=== PATIENT | female | born 1990 | race Hispanic/Latino ===

== ENCOUNTER 2021-09-10 08:06 | Observation (INO) | payer BC ==
[~2021-09-10] VITALS: Ht 160 cm; Wt 83.9 kg
[2021-09-10] VITALS (9 sets, daily range): BP systolic 123–179; BP diastolic 72–108
[2021-09-10 09:43] LABS: HEMATOCRIT 25.4 % (36-48); MEAN CORPUSCULAR HGB CONC 29.5 g/dL (32.0-36.0); MEAN CORPUSCULAR VOLUME 84.7 fL (79-99); PLATELET COUNT (AUTO) 375 K/uL (130-400); RED CELL DISTRIBUTION WIDTH 14.5 % (11.0-15.5); WHITE BLOOD COUNT (AUTO) 4.8 K/uL (4.8-10.8)
[2021-09-10 09:54] LABS: INR 0.93 (0.85-1.15); PROTHROMBIN TIME 10.1 SEC (9.6-11.6)
[2021-09-10 09:55] LABS: PARTIAL THROMBOPLASTIN TIME 31.9 SEC (26.3-35.5)
[2021-09-10 09:57] LABS: CREATININE 0.7 mg/dL (0.5-1.5); POTASSIUM 3.6 mmol/L (3.5-5.1)
[2021-09-10 10:03] LABS: EOSINOPHILS % (MANUAL) 8 % (1-6); LYMPHOCYTES % (MANUAL) 27 % (22-44); MAN.DIFF COMMENT-IMPRESSION MANUAL DIFFERENTIAL; MONOCYTES % (MANUAL) 4 % (2-9); SEGMENTED NEUTROPHILS % 61 % (40-70)
[2021-09-10 10:04] LABS: PLATELET MORPHOLOGY COMMENT ADEQUATE
[2021-09-10] MEDS ORDERED: HYDR-3420 PO (11:03)
[2021-09-10] MEDS ORDERED: FOLI1TAB61 PO (11:04)
[2021-09-10] MEDS ORDERED: LEVO25CA4 PO (11:05)
[2021-09-10] MEDS ORDERED: TORS20TA4 PO (11:06)
[2021-09-10 14:19] LABS: HEMATOCRIT 24.1 % (36-48)
[2021-09-10] MEDS ORDERED: ACETAMINOPHEN 500 MG TABLET PO PRN ×2 (15:30)
[2021-09-11 04:09] VITALS: BP 143/97
[2021-09-11 04:37] LABS: MEAN CORPUSCULAR VOLUME 83.3 fL (79-99); RED BLOOD CELL COUNT(AUTO) 2.88 MIL/uL (4.00-5.50); RED CELL DISTRIBUTION WIDTH 14.5 % (11.0-15.5); WHITE BLOOD COUNT (AUTO) 5.7 K/uL (4.8-10.8)
[2021-09-11 04:46] LABS: CREATININE 0.6 mg/dL (0.5-1.5); POTASSIUM 3.4 mmol/L (3.5-5.1)
[2021-09-11 08:00] VITALS: BP 133/89
[2021-09-11 11:57] VITALS: BP 152/85
[2021-09-11] MEDS ORDERED: IRON SUCROSE COMPLEX 400 MG in 0.9%NACL 50ML 50 ML IV SCH (15:30)
[2021-09-11] MEDS ORDERED: COMPOUND IV MISC 1 EACH IVSOLN MISC PRN (15:30)
[2021-09-11] MEDS ORDERED: IRON SUCROSE COMPLEX 300 MG in 0.9%NACL 50ML 50 ML IV SCH (15:30)
[2021-09-11 16:00] VITALS: BP 164/105
[2021-09-11 20:00] VITALS: BP 140/97
[2021-09-12] VITALS: BP 160/92
[2021-09-12 04:00] VITALS: BP 140/80
[2021-09-12 05:49] LABS: HEMATOCRIT 23.9 % (36-48); MEAN CORPUSCULAR HEMOGLOBIN 25.3 pg (27.0-33.0); MEAN CORPUSCULAR HGB CONC 30.5 g/dL (32.0-36.0); RED BLOOD CELL COUNT(AUTO) 2.88 MIL/uL (4.00-5.50); RED CELL DISTRIBUTION WIDTH 14.4 % (11.0-15.5)
[2021-09-12 06:08] LABS: CREATININE 0.8 mg/dL (0.5-1.5); POTASSIUM 3.5 mmol/L (3.5-5.1)
[2021-09-12 08:00] VITALS: BP 140/76
[2021-09-12] MEDS ORDERED: IRON SUCROSE COMPLEX 300 MG in 0.9%NACL 50ML 50 ML IV SCH (09:00)
[2021-09-12 12:00] VITALS: BP 163/102
[2021-09-12] MEDS ORDERED: FERR325T29 PO (13:55)
== END 2021-09-12 16:45 | disposition home or self-care (01) ==
LOC: RAH 08:06 → 3DH 08:16 → EDSTATUS 10:00
PROVIDERS: ADMIT Internal Medicine Nephrology; ATTEND Internal Medicine Nephrology
DX: R80.9 Proteinuria, unspecified (principal); I12.9 Hypertensive chronic kidney disease with stage 1 through stage 4 chronic kidney disease, or unspecified chronic kidney disease; N18.9 Chronic kidney disease, unspecified; D50.9 Iron deficiency anemia, unspecified; E03.9 Hypothyroidism, unspecified; N83.209 Unspecified ovarian cyst, unspecified side; Z79.899 Other long term (current) drug therapy; Z98.890 Other specified postprocedural states
CPT/HCPCS: 80048 ×3; 85025; 85610; 85730; 85014; 85018; 86850; 86900; 86922; 86901; 86156; 86870; 36415 ×3; 50200; 76942; 96365; 83540; 83550; 82728; 85027 ×2; 96366; G0378 ×56; G0379; J1756 ×2

== ENCOUNTER 2022-09-05 07:03 | Day surgery (SDC) | payer BC ==
[2022-09-02 10:16] VITALS: BP 194/106
[2022-09-02 10:16] LABS: BASOPHILS % (AUTO) 0.4 % (0.0-5.0); EOSINOPHILS % (AUTO) 0.4 % (0.0-8.0); HEMATOCRIT 32.3 % (36-48); LYMPHOCYTES % (AUTO) 11.3 % (21.0-51.0); MEAN CORPUSCULAR HEMOGLOBIN 30.2 pg (27.0-33.0); MEAN CORPUSCULAR HGB CONC 32.8 g/dL (32.0-36.0); MONOCYTES % (AUTO) 8.9 % (3.0-13.0); NEUTROPHILS % (AUTO) 77.4 % (40.0-77.0); PLATELET COUNT (AUTO) 297 K/uL (130-400); RED BLOOD CELL COUNT(AUTO) 3.51 MIL/uL (4.00-5.50); RED CELL DISTRIBUTION WIDTH 14.6 % (11.0-15.5); WHITE BLOOD COUNT (AUTO) 11.4 K/uL (4.8-10.8)
[2022-09-02 10:29] LABS: INR 0.94 (0.85-1.15); PROTHROMBIN TIME 10.3 SEC (9.6-11.6)
[2022-09-02 10:30] LABS: ALBUMIN 2.4 g/dL (3.5-5.0); CREATININE 1.7 mg/dL (0.5-1.5); POTASSIUM 3.8 mmol/L (3.5-5.1); TOTAL PROTEIN, SERUM 4.7 g/dL (6.0-8.3)
[2022-09-02 10:31] LABS: PARTIAL THROMBOPLASTIN TIME 30.5 SEC (26.3-35.5)
[~2022-09-05] VITALS: Ht 162.6 cm; Wt 67.9 kg
[2022-09-05] VITALS (19 sets, daily range): BP systolic 73–154; BP diastolic 38–93
[~2022-09-05 07:03] MED LIST: BUME2TAB5 PO; CARV25TA PO; DOXA2TAB2 PO; ERGO500093 PO; HYDR100T27 PO; IRON1CAP35 PO; LEVE500T19 PO; LEVO50CA4 PO; LOSA100T59 PO; PANT40TA54 PO; PRED20TA3 PO
[2022-09-05] MEDS ORDERED: 0.9%NACL 1000ML 1,000 ML IV ONE (08:40)
[2022-09-05] MEDS ORDERED: CEFAZOLIN SODIUM 2 GM VIAL ONE (08:40)
[2022-09-05] MEDS ORDERED: FAMOTIDINE 20MG VIAL IV ONE (13:00)
[2022-09-05] MEDS ORDERED: HYDROMORPHONE 1 MG INJ ONE (13:00)
[2022-09-05] MEDS ORDERED: MIDAZOLAM HCL 1 MG/ML 2ML VIAL ONE (13:05)
[2022-09-05] MEDS ORDERED: PROPOFOL 10 MG/ML 20ML VIAL IV ONE (13:05)
[2022-09-05] MEDS ORDERED: ROCURONIUM 10MG/1ML SYR 10 MG/ML ML ONE ×2 (13:05→14:37)
[2022-09-05] MEDS ORDERED: FENTANYL CITRATE PF 50 MCG/1 ML 5ML AMP IV ONE (13:06)
[2022-09-05] MEDS ORDERED: CEFAZOLIN SODIUM 2 GM VIAL IVPB ONE (13:31)
[2022-09-05] MEDS ORDERED: BUPIVACAINE/PF 0.5% 50ML 5 MG/ML VIAL IJ ONE (13:32)
[2022-09-05] MEDS ORDERED: BUPIVACAINE/PF 0.5% 50ML 5 MG/ML VIAL ONE (13:36)
[2022-09-05] MEDS ORDERED: GLYCOPYRROLATE 1 MG/5 ML SYRINGE ONE (13:43)
[2022-09-05] MEDS ORDERED: ROPIVACAINE 0.5% 5MG/ML 30ML IJ ONE (16:01)
[2022-09-05] MEDS ORDERED: NEOSTIGMINE 5MG/5ML SYR IV ONE (16:05)
[2022-09-05] MEDS ORDERED: EPHEDRINE SULFATE 50 MG/ML AMPULE ONE (16:26)
== END 2022-09-05 18:14 | disposition home or self-care (01) ==
LOC: DAH 07:03
PROVIDERS: ATTEND Student in an Organized Health Care Education/Training Program
DX: K43.0 Incisional hernia with obstruction, without gangrene (principal); Z20.822 Contact with and (suspected) exposure to COVID-19; K66.0 Peritoneal adhesions (postprocedural) (postinfection); I10 Essential (primary) hypertension; K21.9 Gastro-esophageal reflux disease without esophagitis; E03.9 Hypothyroidism, unspecified; Z79.01 Long term (current) use of anticoagulants; Z79.899 Other long term (current) drug therapy; Z82.49 Family history of ischemic heart disease and other diseases of the circulatory system; Z83.3 Family history of diabetes mellitus; Z98.890 Other specified postprocedural states
CPT/HCPCS: 49596; 64486; S2900; 36415; 80053; 84703; 85025; 85610; 85730; 87426; J1170; J2250; J2704; J2710; J2795; J3010; J3490; J7030

== ENCOUNTER 2022-11-01 14:47 | Emergency (ER) | payer BC ==
[~2022-11-01] VITALS: Ht 160 cm; Wt 64.0 kg
[2022-11-01 16:29] LABS: BASOPHILS % (AUTO) 0.3 % (0.0-5.0); EOSINOPHILS % (AUTO) 0.5 % (0.0-8.0); LYMPHOCYTES % (AUTO) 4.8 % (21.0-51.0); MEAN CORPUSCULAR HEMOGLOBIN 31.2 pg (27.0-33.0); MEAN CORPUSCULAR HGB CONC 31.6 g/dL (32.0-36.0); MEAN CORPUSCULAR VOLUME 98.7 fL (79-99); MONOCYTES % (AUTO) 2.4 % (3.0-13.0); NEUTROPHILS % (AUTO) 91.4 % (40.0-77.0); PLATELET COUNT (AUTO) 335 K/uL (130-400); RED BLOOD CELL COUNT(AUTO) 1.54 MIL/uL (4.00-5.50); RED CELL DISTRIBUTION WIDTH 14.6 % (11.0-15.5); WHITE BLOOD COUNT (AUTO) 11.3 K/uL (4.8-10.8)
[2022-11-01 16:45] LABS: CREATININE 2.1 mg/dL (0.5-1.5)
[2022-11-01 16:50] LABS: HEMATOCRIT 15.2 % (36-48)
[2022-11-01 16:54] LABS: ALBUMIN 2.8 g/dL (3.5-5.0); TOTAL PROTEIN, SERUM 5.5 g/dL (6.0-8.3)
[2022-11-01 17:03] LABS: APPEARANCE,URINE CLEAR (CLEAR); BILIRUBIN,URINE NEGATIVE (NEGATIVE); COLOR,URINE COLORLESS (YELLOW); GLUCOSE, URINE (UA) NEGATIVE (NEGATIVE); KETONES,URINE NEGATIVE (NEGATIVE); LEUKOCYTE ESTERASE ,URINE NEGATIVE Leu/uL (NEGATIVE); NITRATE,URINE NEGATIVE (NEGATIVE); OCCULT BLOOD,URINE LARGE (NEGATIVE); PROTEIN,URINE 30 mg/dL (NEGATIVE); UROBILINOGEN,URINE 0.2 mg/dL (0.2-1.0)
[2022-11-01 17:08] LABS: BACTERIA,URINE RARE /HPF (None Seen); MUCUS,URINE RARE LPF (None Seen); RBC,URINE TNTC /HPF (0-1); SQUAMOUS EPITHELIAL CELL,UR RARE /HPF (0-2)
[2022-11-02 00:24] VITALS: BP 122/53; PULSE 70; RESP 17; O2SAT 98
== END 2022-11-02 00:34 | disposition home or self-care (01) ==
LOC: EDH 14:47
DX: I12.9 Hypertensive chronic kidney disease with stage 1 through stage 4 chronic kidney disease, or unspecified chronic kidney disease (principal); D64.9 Anemia, unspecified; D63.1 Anemia in chronic kidney disease; N18.9 Chronic kidney disease, unspecified; Z79.52 Long term (current) use of systemic steroids; Z79.899 Other long term (current) drug therapy
CPT/HCPCS: 99285; 36430; 80053; 85025; 86850; 86900; 86922; 86901; 81001; 36415; 85007; P9016 ×2

== ENCOUNTER 2022-12-10 15:11 | Emergency (ER) | payer BC ==
[~2022-12-10] VITALS: Ht 160 cm; Wt 65.8 kg
[2022-12-10 16:47] LABS: BASOPHILS # (AUTO) 0.02 K/uL (0.00-0.20); BASOPHILS % (AUTO) 0.4 % (0.0-5.0); EOSINOPHILS # (AUTO) 0.07 K/uL (0.00-0.70); EOSINOPHILS % (AUTO) 1.5 % (0.0-8.0); IMMATURE GRANULOCYTE ABSOLUTE 0.01 K/uL (0-1); LYMPHOCYTES # (AUTO) 0.7 K/uL (1.0-4.8); LYMPHOCYTES % (AUTO) 14.9 % (21.0-51.0); MEAN CORPUSCULAR HGB CONC 31.7 g/dL (32.0-36.0); MEAN CORPUSCULAR VOLUME 91.3 fL (79-99); MONOCYTES # (AUTO) 0.3 K/uL (0.1-1.0); MONOCYTES % (AUTO) 6.4 % (3.0-13.0); NEUTROPHILS # (AUTO) 3.5 K/uL (1.8-7.7); NEUTROPHILS % (AUTO) 76.6 % (40.0-77.0); PLATELET COUNT (AUTO) 330 K/uL (130-400); RED BLOOD CELL COUNT(AUTO) 2.07 MIL/uL (4.00-5.50); RED CELL DISTRIBUTION WIDTH 13.9 % (11.0-15.5); WHITE BLOOD COUNT (AUTO) 4.6 K/uL (4.8-10.8)
[2022-12-10 17:01] LABS: INR < 0.93 (0.85-1.15); PROTHROMBIN TIME 10.5 SEC (9.6-11.6)
[2022-12-10 17:02] LABS: CREATININE 1.7 mg/dL (0.5-1.5); PARTIAL THROMBOPLASTIN TIME 33.3 SEC (26.3-35.5); POTASSIUM 3.9 mmol/L (3.5-5.1)
[2022-12-10 17:03] LABS: AMPHET/METH SCREEN,URINE NEGATIVE (NEGATIVE); BARBITURATE SCREEN, URINE NEGATIVE (NEGATIVE); BENZODIAZEPINES SCREEN,URINE NEGATIVE (NEGATIVE); CANNABINOID SCREEN,URINE NEGATIVE (NEGATIVE); COCAINE SCREEN,URINE NEGATIVE (NEGATIVE); OPIATE SCREEN,URINE NEGATIVE (NEGATIVE); PHENCYCLIDINE SCREEN,URINE NEGATIVE (NEGATIVE)
[2022-12-10 17:07] LABS: HEMATOCRIT 18.9 % (36-48)
[2022-12-10 17:17] LABS: HCG,QUALITATIVE URINE NEGATIVE (NEGATIVE)
[2022-12-10] MEDS ORDERED: 0.9% NACL 500ML IV.SOLN 500 ML IV ONE (19:00)
[2022-12-10 21:49] VITALS: BP 106/65; PULSE 80; RESP 16; O2SAT 100
== END 2022-12-10 22:30 | disposition home or self-care (01) ==
LOC: EDH 15:11
DX: D64.9 Anemia, unspecified (principal); I10 Essential (primary) hypertension; Z79.899 Other long term (current) drug therapy
CPT/HCPCS: 99285; 36430; 80048; 80305; 85025; 85610; 85730; 86850; 86900; 86922; 86901; 81025; 36415; 93005; 85007; P9016